=== PATIENT | male | born 1975 | race Two or more races ===

== ENCOUNTER 2021-03-23 09:38 | Emergency (ER) | payer SELFPAY ==
[2021-03-23 10:30] LABS: BASOPHILS % (AUTO) 0.5 %; EOSINOPHILS # (AUTO) 0.1 10^3/uL (0.0-0.7); EOSINOPHILS % (AUTO) 0.6 %; HCT - HEMATOCRIT 44.4 % (42.0-52.0); HGB - HEMOGLOBIN 14.9 g/dL (14.0-18.0); LYMPHOCYTES # (AUTO) 1.8 10^3/uL (1.5-3.5); LYMPHOCYTES % (AUTO) 20.1 %; MEAN CORPUSCULAR HEMOGLOBIN 30.8 pg (27.0-31.0); MEAN CORPUSCULAR HGB CONC 33.6 g/dL (32.0-36.0); MEAN CORPUSCULAR VOLUME 91.9 fL (80.0-94.0); MEAN PLATELET VOLUME 9.9 fL (7.4-11.4); MONOCYTES # (AUTO) 0.7 10^3/uL (0.0-1.0); MONOCYTES % (AUTO) 7.8 %; NEUTROPHILS # (AUTO) 6.2 10^3/uL (1.5-6.6); NEUTROPHILS % (AUTO) 70.9 %; PLT - PLATELET COUNT 344 10^3/uL (130-450); RED BLOOD COUNT 4.83 10^6/uL (4.70-6.10); RED CELL DISTRIBUTION WIDTH 13.9 % (12.0-15.0); WHITE BLOOD COUNT 8.7 x10^3/uL (4.8-10.8)
--- NOTE | 2021-03-23 10:37 | ED Physician Documentation ---
PD HPI NVD - Stated complaint Stated Complaint: DIARRHEA - Chief complaint Chief Complaint: General - History obtained from History obtained from: Patient - History of Present Illness Timing - onset: Last night, Yesterday Timing - duration: Hours (12) Timing - details: Abrupt onset, Still present Associated symptoms: Abdominal pain (upper abdomen), Loss of appetite. No: Fever, Chest pain, Hematemesis, Dysuria Contributing factors: Bad food (he thinks it was from a sandwich he got at a restaurant. Onset nausea vomiting and diarrhea couple of hours after eating.). No: Sick contact Improved by: No: Vomiting Worsened by: No: Moving Similar symptoms before: Has not had sx before Recently seen: Not recently seen Review of Systems Constitutional: reports: Myalgias. denies: Fever, Chills Nose: denies: Rhinorrhea / runny nose, Congestion Throat: denies: Sore throat Respiratory: denies: Cough GI: reports: Abdominal Pain, Nausea, Vomiting, Diarrhea. denies: Constipation, Hematemesis, Bloody / black stool : denies: Dysuria, Frequency Neurologic: reports: Generalized weakness, Headache PD PAST MEDICAL HISTORY - Past Medical History Cardiovascular: None Respiratory: None GI: None - Past Surgical History Past Surgical History: No - Present Medications Home Medications: Ambulatory Orders Medication Instructions Recorded Confirmed Diphenoxylate/Atropine [Lomotil] 1 each PO QID PRN #12 tablet 03/23/21 Ondansetron Odt [Zofran] 4 mg TL Q6H PRN #10 tablet 03/23/21 - Allergies Allergies/Adverse Reactions: Allergies Allergy/AdvReac Type Severity Reaction Status Date / Time No Known Drug Allergies Allergy Verified 03/23/21 09:53 PD ED PE NORMAL - Vitals Vital signs reviewed: Yes - General General: Alert and oriented X 3, No acute distress, Well developed/nourished - HEENT HEENT: Pharynx benign - Neck Neck: Supple, no meningeal sign, No adenopathy - Cardiac Cardiac: RRR, No murmur - Respiratory Respiratory: Clear bilaterally - Abdomen Abdomen: Normal bowel sounds, Soft, Non distended, No organomegaly, Other (tender epigastric and RUQ areas. No percussion nor rebound tenderness. ) - Back Back: No CVA TTP - Derm Derm: Normal color, Warm and dry - Extremities Extremities: No tenderness to palpate, Normal ROM s pain, No edema, No calf tenderness / cord Results - Vitals Vitals: Oxygen O2 Source Room air - Labs Labs: Laboratory Tests 03/23/21 03/23/21 10:19 10:19 WBC 8.7 RBC 4.83 Hgb 14.9 Hct 44.4 MCV 91.9 MCH 30.8 MCHC 33.6 RDW 13.9 Plt Count 344 MPV 9.9 Neut # (Auto) 6.2 Lymph # (Auto) 1.8 Dewey # (Auto) 0.7 Eos # (Auto) 0.1 Baso # (Auto) 0.0 Absolute Nucleated RBC 0.00 Nucleated RBC % 0.0 Sodium 137 Potassium 3.7 Chloride 100 L Carbon Dioxide 27 Anion Gap 10.0 BUN 8 Creatinine 1.1 Estimated GFR (MDRD) 73 L Glucose 130 H Calcium 9.6 Total Bilirubin 0.5 AST 19 ALT 23 Alkaline Phosphatase 82 Total Protein 8.6 H Albumin 4.5 Globulin 4.1 Albumin/Globulin Ratio 1.1 Lipase 26 - Rads (name of study) upper abd u/s Radiology: Prelim report reviewed (no gallbladder problems), See rad report PD MEDICAL DECISION MAKING - ED course Complexity details: reviewed results, considered differential (seems likely food poisoning, but will test labs and U/S. ), d/w patient Departure - Departure Disposition: 01 Home, Self Care Clinical Impression: Diarrhea Qualifiers: Diarrhea type: presumed infectious Qualified Code(s): R19.7 - Diarrhea, unspecified Abdominal pain Qualifiers: Abdominal location: upper abdomen, unspecified Qualified Code(s): R10.10 - Upper abdominal pain, unspecified Condition: Stable Record reviewed to determine appropriate education?: Yes Instructions: ED Gastroenteritis Vs Food Poison Prescriptions: Diphenoxylate/Atropine [Lomotil] 1 each PO QID PRN #12 tablet PRN Reason: Diarrhea Ondansetron Odt [Zofran] 4 mg TL Q6H PRN #10 tablet PRN Reason: Nausea / Vomiting Comments: Your ultrasound of the gallbladder appears normal. Blood tests are normal as well so no signs of gallbladder or pancreas process. This does sound likely to be food related and as such I would anticipate being improved today and tomorrow. Stay well-hydrated. [place] food today. Ondansetron if needed for nausea and Lomotil if needed for diarrhea. Tylenol if needed for pains. I do not think this was related to your Covid vaccine from a few weeks ago. It does sound more likely to be either stomach virus or more likely food related. Recheck if not improved over the next day or 2. If you are feeling well tomorrow, I would see no reason not to get your second Covid vaccine. Discharge Date/Time: 03/23/21 12:43
[2021-03-23 10:45] LABS: ALBUMIN 4.5 g/dL (3.2-5.5); ALBUMIN/GLOBULIN RATIO 1.1 (1.0-2.2); BILIRUBIN,TOTAL 0.5 mg/dL (0.2-1.0); CALCIUM 9.6 mg/dL (8.5-10.3); CREATININE 1.1 mg/dL (0.6-1.2); POTASSIUM 3.7 mmol/L (3.5-5.0); TOTAL PROTEIN 8.6 g/dL (6.7-8.2)
[2021-03-23] MEDS ORDERED: ONDANSETRON ODT 4 MG TABLET TL STA (10:55)
[2021-03-23] MEDS ORDERED: DIPHENOX/ATROPINE 2.5/0.025 MG TABLET PO STA (10:55)
[2021-03-23] MEDS ORDERED: MAG HYDROX/AL HYDROX/SIMETH 30 ML UDC PO STA (10:55)
--- NOTE | 2021-03-23 12:22 | Ultrasound Report ---
PROCEDURE: Abdomen Limited INDICATIONS: upper abd pain, diarrhea since yesterday TECHNIQUE: Real-time focused scanning was performed of the abdomen, with image documentation. COMPARISON: None FINDINGS: The liver is normal in size measuring 15.6 cm craniocaudad. Echotexture is normal, no sign of intrahepatic biliary distention. The gallbladder also is normal with normal wall thickness of 1.4 mm. The bile ducts are not distended along the course of the mina hepatis with the common bile duct measuring 4.3 mm. The pancreas is normal, as is the right kidney. IMPRESSION: Limited evaluation requested, no sign of source of epigastric pain/upper abdominal pain. Currently th e study appears normal for age. Reviewed by: Carroll Jones MD on 03/23/2021 12:20 PM PDT Approved by: Carroll Jones MD on 03/23/2021 12:20 PM PDT Station ID: [id number]
[2021-03-23 12:43] VITALS: BP 144/102
== END 2021-03-23 12:43 | disposition home or self-care (01) ==
LOC: ED 09:38
DX: R19.7 Diarrhea, unspecified (principal); R10.10 Upper abdominal pain, unspecified; R11.2 Nausea with vomiting, unspecified
CPT/HCPCS: 36415; 76705; 80053; 83690; 85025; 99284; A9270; Q0162